=== PATIENT | female | born 1940 | race Caucasian/White ===

== ENCOUNTER → 2023-03-24 | Outpatient (CLI) | payer MEDICARE, OTHER | END | disposition home or self-care (01) | LOC: RESCLI 09:37 | PROVIDERS: ATTEND Student in an Organized Health Care Education/Training Program | DX: M06.9 Rheumatoid arthritis, unspecified (principal); I48.91 Unspecified atrial fibrillation; I10 Essential (primary) hypertension; M62.838 Other muscle spasm; Z00.00 Encounter for general adult medical examination without abnormal findings; H35.30 Unspecified macular degeneration; Z79.899 Other long term (current) drug therapy; Z88.0 Allergy status to penicillin; Z88.8 Allergy status to other drugs, medicaments and biological substances; Z82.49 Family history of ischemic heart disease and other diseases of the circulatory system; Z98.890 Other specified postprocedural states ==